=== PATIENT | male | born 1950 | race Caucasian/White ===

== ENCOUNTER 2019-02-28 12:56 | Observation (INO) | payer MEDICARE ==
[2019-02-28] MEDS ORDERED: BABY ASPIRIN 81 MG CHEW PO ONE (13:00)
[2019-02-28 13:27] LABS: BASOPHIL % 0.2 % (0.0-0.4); Basophil (Absolute #) 0.02 (0-0.4); Eosinophil % 1.3 % (0.00-5.0); Eosinophil (Absolute #) 0.13 (0-0.5); Granulocyte Absolute (ANC) 7.93 (1.4-6.9); Granulocytes % 78.1 % (36.0-66.0); Hematocrit 44.9 % (42-50); Hemoglobin 15.3 gm/dl (12.5-18.0); Lymphocyte (Absolute #) 1.61 (1.0-4.6); Lymphocytes % 15.9 % (24.0-44.0); Mean Cell Volume 89.4 fl (78-100); Mean Corpuscular Hemoglobin 30.5 pg (26-32); Mean Corpuscular Hgb Concent. 34.1 g/dl (32-36); Mean Platelet Volume 10.6 fl (6-9.5); Monocyte (Absolute #) 0.46 (0.0-1.3); Monocytes % 4.5 % (0.0-12.0); Platelet Count 269 K/mm3 (150-450); Red Blood Count 5.02 M/mm3 (4.1-5.6); Red Cell Distribution Width 13.6 % (11.5-14.0); White Blood Count 10.2 K/mm3 (4.0-10.5)
--- NOTE | 2019-02-28 13:33 | ERPHSYRPT ---
- History of Present Illness Time Seen by Provider: 02/28/19 13:10 Historian: patient Exam Limitations: clinical condition Physician History: PATIENT WITH A HISTORY OF ATRIAL FIBRILLATION, COAGULATED WITH XARELTO 10MG TWICE DAILY, TYPE 2 DIABETES, AND HPERTENSION, COMPLAINS OF ACUTE ONSET OF SHARP CHEST PAINS ASSOCIATED WITH PALPITATIONS. EMS ADMINISTERED CARDIZEM 20 INTRAVENOUS FOR RAPID ATRIL FIBILLATION RVR RATE OF 180. PATIENT DENIES CHEST PAINS UPON ARRIVAL. ADMITS TO TAKING HIS MEDICATIONS EVERY OTHER DAY. Timing/Duration: today, yesterday Activities at Onset: none Location: substernal Chest Pain Radiation: no radiation Severity of Pain-Max: moderate Severity of Pain-Current: none Associated Symptoms: palpitations Prior Chest Pain/Cardiac Workup: angina Nitro Today/Relief: no nitro taken today Aspirin Treatment Today: 81 mg x 4, provided by EMS Allergies/Adverse Reactions: No Known Drug Allergies Allergy (Verified 02/28/19 13:37) Home Medications: Aspirin EC 81 mg [Ecotrin 81 mg] 81 mg PO DAILY 08/02/13 [History] Clonazepam 0.5 mg [Klonopin 0.5 MG] 0.5 mg PO BID 08/02/13 [History] Hydrocodone/Acetaminophen [Hydrocodone-Acetamin 5-325 mg] 1 - 2 each PO Q4H PRN PRN 08/02/13 [History] Bacillus Coagulans [Probiotic] 1 each PO DAILY 02/28/19 [History] Carvedilol 12.5 mg [Coreg 12.5 mg] 12.5 mg PO BID 02/28/19 [History] Clonazepam 0.5 mg [Klonopin 0.5 MG] 0.5 mg PO DAILY 02/28/19 [History] Clonidine HCl 0.1 mg [Catapres 0.1 MG] 0.1 mg PO DAILY 02/28/19 [History] Diltiazem HCl 240 mg [Cardizem CD 240 MG] 240 mg PO DAILY 02/28/19 [ History] Glimepiride 2 mg [Amaryl 2 MG] 2 mg PO DAILY 02/28/19 [History] Lisinopril [Zestril] 40 mg PO DAILY 02/28/19 [History] Metformin HCl 500 mg [Glucophage 500 MG] 1,000 mg PO BID 02/28/19 [History ] Rivaroxaban 10 mg Tablet [Xarelto 10 mg Tablet] 10 mg PO BID 02/28/19 [ History] Vitamin E 400 unit PO DAILY 02/28/19 [History] Warfarin Sodium 1 mg [Coumadin 1 MG] 1 mg PO DAILY 02/28/19 [History] Hx Tetanus, Diphtheria Vaccination/Date Given: Yes Hx Influenza Vaccination/Date Given: No Hx Pneumococcal Vaccination/Date Given: No - Review of Systems Constitutional: No Fever, No Chills Eyes: No Symptoms Ears, Nose, & Throat: No Symptoms Respiratory: No Symptoms, No Cough, No Dyspnea Cardiac: Chest Pain, Palpitations, No Edema, No Syncope Abdominal/Gastrointestinal: No Symptoms, No Abdominal Pain, No Nausea, No Vomiting, No Diarrhea Genitourinary Symptoms: No Symptoms, No Dysuria Musculoskeletal: No Symptoms, No Back Pain, No Neck Pain Skin: No Symptoms, No Rash Neurological: No Dizziness, No Focal Weakness, No Sensory Changes Psychological: No Symptoms Endocrine: No Symptoms All Other Systems: Reviewed and Negative - Past Medical History Pertinent Past Medical History: Yes Neurological History: No Pertinent History ENT History: No Pertinent History Cardiac History: Arrhythmia, Hypertension Respiratory History: No Pertinent History Endocrine Medical History: Diabetes Type II Musculoskeletal History: No Pertinent History GI Medical History: No Pertinent History History: No Pertinent History Psycho-Social History: Anxiety, Depression Male Reproductive Disorders: No Pertinent History Other Medical History: MELANOMA - Past Surgical History Past Surgical History: Yes Neuro Surgical History: No Pertinent History Cardiac: No Pertinent History Respiratory: No Pertinent History Gastrointestinal: No Pertinent History Genitourinary: No Pertinent History Musculoskeletal: No Pertinent History Male Surgical History: No Pertinent History Other Surgical History: MOLE REMOVED FROM ARM - Social History Smoking Status: Former smoker Exposure to second hand smoke: No Drug Use: marijuana Patient Lives Alone: No Significant Family History: hypertension - Nursing Vital Signs Nursing Vital Signs: Initial Vital Signs Temperature 97.2 F 02/28/19 12:57 Pulse Rate 102 H 02/28/19 12:57 Respiratory Rate 16 02/28/19 12:57 Blood Pressure 176/99 02/28/19 12:57 O2 Sat by Pulse Oximetry 99 06/30/19 12:57 Pain Scale Pain Intensity 0 - Physical Exam General Appearance: no apparent distress, alert Eye Exam: PERRL/EOMI, eyes nml inspection Ears, Nose, Throat Exam: normal ENT inspection, moist mucous membranes Neck Exam: normal inspection, non-tender, supple, full range of motion Respiratory Exam: normal breath sounds, lungs clear, No respiratory distress Cardiovascular Exam: normal heart sounds, tachycardia, irregular Gastrointestinal/Abdomen Exam: soft, normal bowel sounds (NONTENDER), No tenderness, No mass Back Exam: normal inspection, No CVA tenderness, No vertebral tenderness Extremity Exam: normal inspection, normal range of motion Neurologic Exam: alert, oriented x 3, cooperative, normal mood/affect, sensation nml, No motor deficits Skin Exam: normal color, warm, dry SpO2: 99 - Course EKG Interpreted by Me: RATE, A-fib, NORMAL AXIS - Radiology Exams Chest X-ray Interpretation: Interpreted by me, Negative, No Infiltrates Ordered Tests: Active Orders 24 hr Category Date Time Status Chemical Maker STAT Care 02/28/19 13:01 Active EKG-ER Only STAT Care 02/28/19 13:00 Active Oxygen-ED Only Nasal Cannula 2 lpm Care 02/28/19 13:00 Active CHEST 1 VIEW (PORTABLE) Stat Exams 02/28/19 13:18 Taken CBC W DIFF Stat Lab 02/28/19 13:24 Completed CMP Stat Lab 02/28/19 13:24 Completed MAGNESIUM Routine Lab 02/28/19 13:24 Completed NT PRO BNP Stat Lab 02/28/19 13:24 Completed PROTIME WITH INR Stat Lab 02/28/19 13:24 Completed TROPONIN Q3H Lab 02/28/19 13:24 Completed TROPONIN Q3H Lab 02/28/19 16:00 Ordered TROPONIN Q3H Lab 02/28/19 19:00 Ordered TROPONIN Q3H Lab 02/28/19 22:00 Ordered TROPONIN Q3H Lab 03/01/19 01:00 Ordered Medication Summary Generic Name Dose Route Start Last Admin Trade Name Freq PRN Reason Stop Dose Admin Sodium Chloride 1,000 mls @ 100 mls/hr 02/28/19 13:00 02/28/19 14:10 Sodium Chloride 0.9% 1000 Ml IV 03/30/19 12:59 100 mls/hr .Q10H RUBY Administration Diltiazem HCl 100 mls @ 10 mls/hr 02/28/19 13:02 02/28/19 14:03 Cardizem Drip 100 Mg/100 Ml D5w IV 03/30/19 13:01 10 mg/hr .Q10H PRN 10 mls/hr HEART RATE/ A-FIB Administration Protocol 10 MG/HR Discontinued Medications Generic Name Dose Route Start Last Admin Trade Name Freq PRN Reason Stop Dose Admin Aspirin 324 mg 02/28/19 13:00 02/28/19 13:53 Baby Aspirin 81 Mg Chew PO 02/28/19 13:01 Not Given STAT ONE Lab/Rad Data: Laboratory Result Diagrams 02/28/19 13:24 02/28/19 13:24 Laboratory Results 02/28/19 02/28/19 02/28/19 Range/Units 13:24 13:24 13:24 WBC 10.2 (4.0-10.5) K/mm3 RBC 5.02 (4.1-5.6) M/mm3 Hgb 15.3 (12.5-18.0) gm/dl Hct 44.9 (42-50) % MCV 89.4 (78-100) fl MCH 30.5 (26-32) pg MCHC 34.1 (32-36) g/dl RDW 13.6 (11.5-14.0) % Plt Count 269 (150-450) K/mm3 MPV 10.6 H (6-9.5) fl Gran % 78.1 H (36.0-66.0) % Eos # (Auto) 0.13 (0-0.5) Absolute Lymphs (auto) 1.61 (1.0-4.6) Absolute Monos (auto) 0.46 (0.0-1.3) Lymphocytes % 15.9 L (24.0-44.0) % Monocytes % 4.5 (0.0-12.0) % Eosinophils % 1.3 (0.00-5.0) % Basophils % 0.2 (0.0-0.4) % Absolute Granulocytes 7.93 H (1.4-6.9) Basophils # 0.02 (0-0.4) PT 12.2 (8.83-12.87) SECONDS INR 1.08 (0.8-3.0) Sodium 142 (137-145) mmol/L Potassium 3.6 (3.5-5.1) mmol/L Chloride 108 H (98-107) mmol/L Carbon Dioxide 19 L (22-30) mmol/L Anion Gap 18.5 H (5-15) MEQ/L BUN 15 (9-20) mg/dL Creatinine 1.20 (0.66-1.25) mg/dL Estimated GFR > 60.0 ML/MIN Glucose 197 H (74-106) mg/dL Calcium 10.2 (8.4-10.2) mg/dL Magnesium (1.6-2.3) mg/dL Total Bilirubin 1.20 (0.2-1.3) mg/dL AST 18 (17-59) U/L ALT 17 (0-50) U/L Alkaline Phosphatase 76 (38-126) U/L Troponin I (0.000-0.034) ng/mL NT-Pro-B Natriuret Pep 881 (0-900) pg/mL Serum Total Protein 8.3 H (6.3-8.2) g/dL Albumin 4.8 (3.5-5.0) g/dL 02/28/19 Range/Units 13:24 WBC (4.0-10.5) K/mm3 RBC (4.1-5.6) M/mm3 Hgb (12.5-18.0) gm/dl Hct (42-50) % MCV (78-100) fl MCH (26-32) pg MCHC (32-36) g/dl RDW (11.5-14.0) % Plt Count (150-450) K/mm3 MPV (6-9.5) fl Gran % (36.0-66.0) % Eos # (Auto) (0-0.5) Absolute Lymphs (auto) (1.0-4.6) Absolute Monos (auto) (0.0-1.3) Lymphocytes % (24.0-44.0) % Monocytes % (0.0-12.0) % Eosinophils % (0.00-5.0) % Basophils % (0.0-0.4) % Absolute Granulocytes (1.4-6.9) Basophils # (0-0.4) PT (8.83-12.87) SECONDS INR (0.8-3.0) Sodium (137-145) mmol/L Potassium (3.5-5.1) mmol/L Chloride (98-107) mmol/L Carbon Dioxide (22-30) mmol/L Anion Gap (5-15) MEQ/L BUN (9-20) mg/dL Creatinine (0.66-1.25) mg/dL Estimated GFR ML/MIN Glucose (74-106) mg/dL Calcium (8.4-10.2) mg/dL Magnesium 1.9 (1.6-2.3) mg/dL Total Bilirubin (0.2-1.3) mg/dL AST (17-59) U/L ALT (0-50) U/L Alkaline Phosphatase (38-126) U/L Troponin I < 0.012 (0.000-0.034) ng/mL NT-Pro-B Natriuret Pep (0-900) pg/mL Serum Total Protein (6.3-8.2) g/dL Albumin (3.5-5.0) g/dL - Progress Progress: improved Progress Note: 02/28/19 14:21 ADMINISTERED IV CARDIZEM INFUSION 10MG/HR, RATE CONTROLLED AT [address] Morales (DISCUSSED WITH DR MORALES AT 1430 FOR OBSERVATION) - Departure Departure Disposition: Observation Clinical Impression: ACUTE CHEST PAIN, ATRIAL FIBRILLATION RVR Condition: Stable Critical Care Time: No Referrals: BASHIR MORALES [Primary Care Provider] -
[2019-02-28 13:34] LABS: INR 1.08 (0.8-3.0); PROTIME 12.2 SECONDS (8.83-12.87)
[2019-02-28 13:47] LABS: ALBUMIN 4.8 g/dL (3.5-5.0); ALKALINE PHOSPHATASE 76 U/L (38-126); ANION GAP 18.5 MEQ/L (5-15); BLOOD UREA NITROGEN 15 mg/dL (9-20); CHLORIDE 108 mmol/L (98-107); Calcium 10.2 mg/dL (8.4-10.2); Carbon Dioxide 19 mmol/L (22-30); Glucose 197 mg/dL (74-106); NT PRO BNP 881 pg/mL (0-900); Potassium 3.6 mmol/L (3.5-5.1); SGOT/AST 18 U/L (17-59); SGPT/ALT 17 U/L (0-50); SODIUM 142 mmol/L (137-145); Total Protein 8.3 g/dL (6.3-8.2)
[2019-02-28 13:50] LABS: MAGNESIUM 1.9 mg/dL (1.6-2.3)
[2019-02-28 13:56] LABS: TROPONIN < 0.012 ng/mL (0.000-0.034)
[2019-02-28] MEDS: CARDIZEM DRIP 100 MG/100 ML D5W 100 ML IV PRN (14:03)
[2019-02-28] MEDS: Sodium Chloride 0.9% 1000 ML 1,000 ML IV SCH (14:10)
[2019-02-28] MEDS ORDERED: Zofran 4 MG/2 ML VIAL IV PRN (14:59)
[2019-02-28] MEDS ORDERED: TYLENOL 325 MG PO PRN (14:59)
[2019-02-28] MEDS ORDERED: Zestril 10 MG PO STA (15:04)
[2019-02-28] MEDS ORDERED: Catapres 0.1 MG PO ONE (17:25)
[2019-02-28] MEDS ORDERED: Coumadin 3 MG PO SCH (18:00)
[2019-02-28] MEDS ORDERED: Zestril 20 MG ONE (18:01)
[2019-02-28] MEDS ORDERED: NORVASC 5 MG ONE (18:02)
[2019-02-28] MEDS: Coreg 6.25 MG PO SCH (18:07)
[2019-02-28] MEDS: NORVASC 5 MG PO SCH (18:13)
--- NOTE | 2019-02-28 19:07 | PCM.HP ---
History of Present Illness - Chief Complaint Chief Complaint: Chest Pain History of Present Illness: is a 69 year old male pt of mine from [facility] with hx noncompliance, hx malignant melanoma, chronic afib, DM, HTN, and anxiety who was brought in by EMS in [facility] with RVR. He was found to have an intial HR of 140 and was given 20mg cardizem IV by EMS and is now on a 10mg drip with HR in the 90s. Pt said "for some time" he's had palpitations, worsening. Since the weather warmed he has felt hot, like he can't breathe at night In his ROS, very concerning was his discussion that he has been having "overwhelming thoughts" of suicide which are intermittent - when they are over, he can't believe he had those thoughts. Has had thoughts of using a rope or a gun to harm himself. Pt has recently not been taking his meds regularly. Re: Xarelto - he stopped it because it made him bleed worse than warfarin. He then found the demands of INR checking to be too onerous so has not been taking warfarin or getting his INR checked. Current INR 1.08. Re: Antihypertensives/antiarrhythmics - he found that his HR was getting too low , was feeling very tired, so initially he was taking 1/2 his pills, then he moved to just taking them every other day if his #s "were bad." Found the clonidine to dry his mouth too much so was just taking it prn if his bP was elevated. He apparently lives in a poor situation, described as "slum lord house," with little insulation and a window unit. - Review of Systems Constitutional: Weakness Respiratory: Short Of Breath Cardiac: Palpitations Musculoskeletal: Other (arm pain at melanoma site intermittently) Psychological: Anxiety, Depression, Suicidal Ideations, Emotional Lability Endocrine: Other (heat intolerance) All Other Systems: Reviewed and Negative Medications & Allergies Home Medications: Home Medication List Aspirin EC 81 mg [Ecotrin 81 mg] 81 mg PO DAILY 08/02/13 [History Confirmed 02/28/19] Hydrocodone/Acetaminophen [Hydrocodone-Acetamin 5-325 mg] 1 - 2 each PO Q4H PRN PRN 08/02/13 [History Confirmed 02/28/19] Amlodipine Besylate 10 mg PO DAILY 02/28/19 [History Confirmed 02/28/19] Bacillus Coagulans [Probiotic] 1 each PO DAILY 02/28/19 [History Confirmed 02/28] Carvedilol 12.5 mg [Coreg 12.5 mg] 12.5 mg PO BID 02/28/19 [History Confirmed 02/28/19] Clonazepam 0.5 mg [Klonopin 0.5 MG] 0.5 mg PO BID PRN 02/28/19 [History Confirmed 02/28/19] Clonidine HCl 0.1 mg [Catapres 0.1 MG] 0.1 mg PO DAILY 02/28/19 [History Confirmed 02/28/19] Diltiazem HCl 240 mg [Cardizem CD 240 MG] 240 mg PO DAILY 02/28/19 [ History Confirmed 02/28/19] Glimepiride 2 mg [Amaryl 2 MG] 2 mg PO DAILY 02/28/19 [History Confirmed 02/28/19] Lisinopril [Zestril] 40 mg PO DAILY 02/28/19 [History Confirmed 02/28/19] Metformin HCl 500 mg [Glucophage 500 MG] 1,000 mg PO BID 02/28/19 [ History Confirmed 02/28/19] Vitamin E 400 unit PO DAILY 02/28/19 [History Confirmed 02/28/19] Warfarin Sodium [Jantoven] 6 mg PO DAILY 02/28/19 [History Confirmed 02/28/19] Allergies/Adverse Reactions: Allergies Allergy/AdvReac Type Severity Reaction Status Date / Time No Known Drug Allergies Allergy Verified 02/28/19 13:37 - Past Medical History Past Medical History: Yes Neurological History: No Pertinent History ENT History: No Pertinent History Cardiac History: Arrhythmia, Hypertension Respiratory History: No Pertinent History Endocrine Medical History: Diabetes Type II Musculoskelatal History: No Pertinent History GI Medical History: No Pertinent History History: No Pertinent History Pyscho-Social History: Anxiety, Depression Male Reproductive Disorders: No Pertinent History Comment: MELANOMA right arm - Past Surgical History Past Surgical History: Yes Neuro Surgical History: No Pertinent History Cardiac History: No Pertinent History Respiratory Surgery: No Pertinent History GI Surgical History: No Pertinent History Genitourinary Surgical Hx: No Pertinent History Musculskeletal Surgical Hx: No Pertinent History Male Surgical History: No Pertinent History Other Surgical History: MOLE REMOVED FROM ARM - Social History Smoking Status: Former smoker Exposure to second hand smoke: Yes Alcohol: None Drug Use: marijuana Significant Family History: hypertension - Physical Exam Vital Signs: Vital Signs - 24 hr Temp Pulse Pulse Resp BP BP Pulse Ox 02/28/19 18:00 97.8 F 79 18 157/86 98 02/28/19 16:48 97.8 F 79 18 157/86 98 02/28/19 16:21 97.8 F 79 18 157/86 99 02/28/19 16:01 97.8 F 79 18 157/86 98 02/28/19 15:03 84 18 167/92 02/28/19 14:59 67 02/28/19 14:31 99 02/28/19 14:14 92 H 16 161/109 99 02/28/19 13:05 100 H 02/28/19 12:57 97.2 F 102 H 16 176/99 99 Oxygen-Last 24 hours O2 Percentage 2 Liters = 28% O2 Percentage 3 Liters = 32% O2 Percentage 3 Liters = 32% General Appearance: no apparent distress, alert Neurologic Exam: oriented x 3, cooperative, depressed mood/affect Eye Exam: eyes nml inspection Ears, Nose, Throat Exam: moist mucous membranes Neck Exam: normal inspection, non-tender, No lymphadenopathy Respiratory Exam: normal breath sounds, lungs clear, No crackles/rales, No rhonchi, No wheezing Cardiovascular Exam: regular rate/rhythm, normal heart sounds, No murmur Gastrointestinal/Abdomen Exam: soft, normal bowel sounds, No tenderness, No distention, No mass, No guarding, No rebound Back Exam: normal inspection, No rash Extremity Exam: normal inspection, No pedal edema, No swelling Skin Exam: normal color, warm, dry, No rash Results - Labs Lab/Micro Results: Lab Results-Last 24 Hours 02/28/19 02/28/19 02/28/19 Range/Units 13:24 13:24 13:24 WBC 10.2 (4.0-10.5) K/mm3 RBC 5.02 (4.1-5.6) M/mm3 Hgb 15.3 (12.5-18.0) gm/dl Hct 44.9 (42-50) % MCV 89.4 (78-100) fl MCH 30.5 (26-32) pg MCHC 34.1 (32-36) g/dl RDW 13.6 (11.5-14.0) % Plt Count 269 (150-450) K/mm3 MPV 10.6 H (6-9.5) fl Gran % 78.1 H (36.0-66.0) % Eos # (Auto) 0.13 (0-0.5) Absolute Lymphs (auto) 1.61 (1.0-4.6) Absolute Monos (auto) 0.46 (0.0-1.3) Lymphocytes % 15.9 L (24.0-44.0) % Monocytes % 4.5 (0.0-12.0) % Eosinophils % 1.3 (0.00-5.0) % Basophils % 0.2 (0.0-0.4) % Absolute Granulocytes 7.93 H (1.4-6.9) Basophils # 0.02 (0-0.4) PT (8.83-12.87) SECONDS INR (0.8-3.0) Sodium 142 (137-145) mmol/L Potassium 3.6 (3.5-5.1) mmol/L Chloride 108 H (98-107) mmol/L Carbon Dioxide 19 L (22-30) mmol/L Anion Gap 18.5 H (5-15) MEQ/L BUN 15 (9-20) mg/dL Creatinine 1.20 (0.66-1.25) mg/dL Estimated GFR > 60.0 ML/MIN Glucose 197 H (74-106) mg/dL Hemoglobin A1c (4.5-6.0) % Calcium 10.2 (8.4-10.2) mg/dL Magnesium 1.9 (1.6-2.3) mg/dL Total Bilirubin 1.20 (0.2-1.3) mg/dL AST 18 (17-59) U/L ALT 17 (0-50) U/L Alkaline Phosphatase 76 (38-126) U/L Troponin I < 0.012 (0.000-0.034) ng/mL NT-Pro-B Natriuret Pep 881 (0-900) pg/mL Serum Total Protein 8.3 H (6.3-8.2) g/dL Albumin 4.8 (3.5-5.0) g/dL 02/28/19 02/28/19 02/28/19 Range/Units 13:24 13:25 15:52 WBC (4.0-10.5) K/mm3 RBC (4.1-5.6) M/mm3 Hgb (12.5-18.0) gm/dl Hct (42-50) % MCV (78-100) fl MCH (26-32) pg MCHC (32-36) g/dl RDW (11.5-14.0) % Plt Count (150-450) K/mm3 MPV (6-9.5) fl Gran % (36.0-66.0) % Eos # (Auto) (0-0.5) Absolute Lymphs (auto) (1.0-4.6) Absolute Monos (auto) (0.0-1.3) Lymphocytes % (24.0-44.0) % Monocytes % (0.0-12.0) % Eosinophils % (0.00-5.0) % Basophils % (0.0-0.4) % Absolute Granulocytes (1.4-6.9) Basophils # (0-0.4) PT 12.2 (8.83-12.87) SECONDS INR 1.08 (0.8-3.0) Sodium (137-145) mmol/L Potassium (3.5-5.1) mmol/L Chloride (98-107) mmol/L Carbon Dioxide (22-30) mmol/L Anion Gap (5-15) MEQ/L BUN (9-20) mg/dL Creatinine (0.66-1.25) mg/dL Estimated GFR ML/MIN Glucose (74-106) mg/dL Hemoglobin A1c 7.35 H (4.5-6.0) % Calcium (8.4-10.2) mg/dL Magnesium (1.6-2.3) mg/dL Total Bilirubin (0.2-1.3) mg/dL AST (17-59) U/L ALT (0-50) U/L Alkaline Phosphatase (38-126) U/L Troponin I < 0.012 (0.000-0.034) ng/mL NT-Pro-B Natriuret Pep (0-900) pg/mL Serum Total Protein (6.3-8.2) g/dL Albumin (3.5-5.0) g/dL - Radiology Impressions Radiology Exams & Impressions: Radiology Procedures Category Date Time Status CHEST 1 VIEW (PORTABLE) Stat Exams 02/28/19 13:18 Taken - Other Procedures and Tests Respiratory Therapy 02/28/19 14:59 Oxygen Nasal Cannula 2 lpm 02/28/19 21:00 EKG ONCE 03/01/19 05:00 EKG ONCE 03/02/19 05:00 EKG ONCE 03/03/19 05:00 EKG ONCE Assessment/Plan (1) Atrial fibrillation with RVR Current Visit: Yes Status: Acute Assessment & Plan: ON cardizem drip at 10/hr - would consider changing to po cardizem in the morning - maybe a little lower than typical home dose because it sounds like that made his HR too low. Code(s): I48.91 - UNSPECIFIED ATRIAL FIBRILLATION (2) Suicidal ideation Current Visit: Yes Status: Acute Assessment & Plan: Consulting [facility] in the morning - I did not mention this to pt yet because I did not want to distress him or make him leave AMA. I believe however that he may be very agreeable because he found these thoughts distressing. Code(s): R45.851 - SUICIDAL IDEATIONS (3) Depression Current Visit: Yes Status: Chronic Qualifiers: Depression Type: major depressive disorder Major depression recurrence: recurrent Active/Remission status: currently active Major depression episode severity: severe Psychotic features: without psychotic features Qualified Code(s): F33.2 - Major depressive disorder, recurrent severe without psychotic features Code(s): F32.9 - MAJOR DEPRESSIVE DISORDER, SINGLE EPISODE, UNSPECIFIED (4) Diabetes mellitus Current Visit: Yes Status: Chronic Qualifiers: Diabetes mellitus type: type 2 Diabetes mellitus mcfp insulin use: without gill box fixer use Diabetes mellitus complication status: without complication Qualified Code(s): E11.9 - Type 2 diabetes mellitus without complications Code(s): E11.9 - TYPE 2 DIABETES MELLITUS WITHOUT COMPLICATIONS (5) HTN (hypertension) Current Visit: Yes Status: Chronic Qualifiers: Hypertension type: essential hypertension Qualified Code(s): I10 - Essential (primary) hypertension Code(s): I10 - ESSENTIAL (PRIMARY) HYPERTENSION (6) Hx of melanoma of skin Current Visit: Yes Status: Chronic Assessment & Plan: report pending on CXR. He does not get regular checks like he should. I removed the initial lesion approx 6 years ago and he saw dermatology in [facility] for the full resection and did not have any mets at that time. Code(s): Z85.820 - PERSONAL HISTORY OF MALIGNANT MELANOMA OF SKIN
[2019-02-28] MEDS: ENOXAPARIN SODIUM SQ SCH (20:16)
--- NOTE | 2019-02-28 21:10 | XRAY ---
Indication: Chest pain. Comparison: February 21, 2014. Portable chest remains clear. Heart and mediastinal structures within normal limits. Bony thorax intact with mild degenerative changes. Impression: Nonacute chest.
[2019-02-28] MEDS ORDERED: XARELTO 10 MG TABLET PO SCH (22:00)
[2019-03-01] MEDS: Sodium Chloride 0.9% 1000 ML 1,000 ML IV SCH ×2 (00:28→10:48)
[2019-03-01] MEDS ORDERED: CARDIZEM DRIP 100 MG/100 ML D5W 100 ML IV ONE (01:43)
[2019-03-01] MEDS: CARDIZEM DRIP 100 MG/100 ML D5W 100 ML IV PRN (01:57)
[2019-03-01 06:36] LABS: INR 1.23 (0.8-3.0); PROTIME 13.9 SECONDS (8.83-12.87)
[2019-03-01] MEDS ORDERED: NORCO 5/325 MG PO PRN (07:22)
[2019-03-01] MEDS ORDERED: Glucophage 500 MG PO SCH (08:00)
[2019-03-01] MEDS: Coreg 6.25 MG PO SCH (09:36)
[2019-03-01] MEDS: ENOXAPARIN SODIUM SQ SCH (09:37)
[2019-03-01] MEDS: NORVASC 5 MG PO SCH (09:37)
[2019-03-01] MEDS ORDERED: Zestril 20 MG PO SCH (10:00)
[2019-03-01] MEDS ORDERED: ECOTRIN 81 MG PO SCH (10:00)
[2019-03-01] MEDS ORDERED: Catapres 0.1 MG PO SCH (10:00)
[2019-03-01] MEDS ORDERED: Cardizem CD 240 MG PO SCH (10:00)
[2019-03-01] MEDS ORDERED: NON-FORMULARY ITEM (Lisinopril [Zestril] 40 MG) PO SCH (10:00)
[2019-03-01] MEDS ORDERED: Amaryl 2 MG PO SCH (10:00)
[2019-03-01] MEDS ORDERED: Cardizem CD 180 MG PO SCH (13:45)
[2019-03-01] MEDS ORDERED: Cardizem CD 120 MG PO SCH (14:00)
[2019-03-01] MEDS ORDERED: Coreg 6.25 MG PO ONE (16:50)
[2019-03-01 16:56] VITALS: PULSE 101; O2SAT 98
[2019-03-01 17:12] VITALS: BP 143/81
--- NOTE | 2019-03-01 17:33 | PCM.DS ---
Discharge Summary Date of Admission: 02/28/19 15:53 Admitting Physician: BASHIR MORALES Consults: Consults on Case 02/28/19 19:11 Consult Tele-Health [Tele-Health Consult] ROUTINE Primary Care Provider: BASHIR MORALES Allergies Allergies No Known Drug Allergies Allergy (Verified 02/28/19 13:37) Hospital Summary - Vitals & Intake/Output Vital Signs: Vital Signs Temperature 97.7 F 03/01/19 16:00 Pulse Rate 101 H 03/01/19 16:00 Respiratory Rate 18 03/01/19 16:00 Blood Pressure 143/81 03/01/19 17:10 O2 Sat by Pulse Oximetry 98 03/01/19 16:00 Oxygen-Last Documented O2 Percentage 2 Liters = 28% Intake & Output: Intake & Output 02/27/19 02/28/19 03/01/19 03/02/19 11:59 11:59 11:59 11:59 Intake Total 1903 Output Total 1850 Balance 53 Weight 77.3 kg - Lab Result Diagrams: 02/28/19 13:24 02/28/19 13:24 Lab Results-Last 24 Hrs: Accuchecks Date 03/01/19 Date 03/01/19 Date 02/28/19 Time 11:30 Time 07:30 Time 21:00 Accucheck Value: 183 Accucheck Value: 155 Accucheck Value: 160 Lab Results-Last 24 Hours 02/28/19 02/28/19 03/01/19 Range/Units 19:10 22:28 01:05 PT (8.83-12.87) SECONDS INR (0.8-3.0) Troponin I < 0.012 < 0.012 < 0.012 (0.000-0.034) ng/mL 03/01/19 Range/Units 05:17 PT 13.9 H (8.83-12.87) SECONDS INR 1.23 (0.8-3.0) Troponin I (0.000-0.034) ng/mL Micro Results-Entire Visit: Accuchecks Date 03/01/19 Date 03/01/19 Date 02/28/19 Time 11:30 Time 07:30 Time 21:00 Accucheck Value: 183 Accucheck Value: 155 Accucheck Value: 160 - Radiology Exams Ordered Rad Exams-Entire Visit: Radiology Procedures Category Date Time Status CHEST 1 VIEW (PORTABLE) Stat Exams 02/28/19 13:18 Completed - Procedures and Test Procedures and Tests throughout Hospitalization: Therapy Orders & Screens 02/28/19 14:59 Oxygen Nasal Cannula 2 lpm Comment: 02/28/19 21:00 EKG ONCE Comment: Diagnosis: Chest Pain 03/01/19 05:00 EKG ONCE Comment: Diagnosis: Chest Pain 03/02/19 05:00 EKG ONCE Comment: Diagnosis: Chest Pain 03/03/19 05:00 EKG ONCE Comment: Diagnosis: Chest Pain Final Diagnosis/Problem List - Final Discharge Diagnosis/Problem (1) Atrial fibrillation with RVR Current Visit: Yes Status: Resolved Assessment & Plan: on diltiazem,transitioned off Drip without difficulty.Rate now in the 80's. Code(s): I48.91 - UNSPECIFIED ATRIAL FIBRILLATION (2) HTN (hypertension) Current Visit: Yes Status: Chronic Assessment & Plan: patient will monitor at home and record and bring readings to follow visit and will call if problems with B/P Code(s): I10 - ESSENTIAL (PRIMARY) HYPERTENSION (3) Depression Current Visit: Yes Status: Chronic Assessment & Plan: Patient had the benefit of evaluation with today who states patient is stable for discharge home and was given a Saftey Plan and they are confident that he will follow it . Code(s): F32.9 - MAJOR DEPRESSIVE DISORDER, SINGLE EPISODE, UNSPECIFIED (4) Diabetes mellitus Current Visit: Yes Status: Chronic Assessment & Plan: A1C is 7.35 this hospital stay. Metformin reduced to 500mg q PM ( patient was taking it qod at home and had been on 1000mg daily.Amaryl 2 mg daily as at home. Code(s): E11.9 - TYPE 2 DIABETES MELLITUS WITHOUT COMPLICATIONS (5) Suicidal ideation Current Visit: Yes Status: Resolved Assessment & Plan: no further suicidal ideation.see eval and recommendations.Patient states he had a good visit with them today. Code(s): R45.851 - SUICIDAL IDEATIONS (6) Atrial fibrillation Current Visit: Yes Status: Chronic Assessment & Plan: continue Cardiazem 240mg,stop Amlodipine.Continue Coumadin 6 mg daily (this is his usual dose)Xeralto was discontinued this hospitalization. Code(s): I48.91 - UNSPECIFIED ATRIAL FIBRILLATION (7) Anticoagulant long-term use Current Visit: Yes Status: Chronic Assessment & Plan: Patient prefers "Coumadin as I used to take it and test with Dr Morales at her office". He will not take Xeralto because he says his gums bleed and face bleeds easily when he shaves . Code(s): Z79.01 - NURSING HOME (CURRENT) USE OF ANTICOAGULANTS - Discharge Disposition: Home, Self-Care Condition: Stable Prescriptions: No Action Aspirin EC 81 mg [Ecotrin 81 mg] 81 mg PO DAILY Hydrocodone/Acetaminophen [Hydrocodone-Acetamin 5-325 mg] 1 - 2 each PO Q4H PRN PRN PRN Reason: Pain Clonidine HCl 0.1 mg [Catapres 0.1 MG] 0.1 mg PO DAILY Carvedilol 12.5 mg [Coreg 12.5 mg] 12.5 mg PO BID Clonazepam 0.5 mg [Klonopin 0.5 MG] 0.5 mg PO BID PRN PRN Reason: Anxiety Lisinopril [Zestril] 40 mg PO DAILY Metformin HCl 500 mg [Glucophage 500 MG] 1,000 mg PO BID Glimepiride 2 mg [Amaryl 2 MG] 2 mg PO DAILY Vitamin E 400 unit PO DAILY Bacillus Coagulans [Probiotic] 1 each PO DAILY Diltiazem HCl 240 mg [Cardizem CD 240 MG] 240 mg PO DAILY Warfarin Sodium [Jantoven] 6 mg PO DAILY Amlodipine Besylate 10 mg PO DAILY Follow up with: BASHIR MORALES [Primary Care Provider] - 03/09/19 11:15 am
[2019-03-02] MEDS ORDERED: Amaryl 2 MG PO SCH (08:00)
== END 2019-03-01 18:08 | disposition home or self-care (01) ==
LOC: ED 12:56 → ICU 15:53
PROVIDERS: ADMIT Family Medicine; ATTEND Family Medicine
DX: I48.91 Unspecified atrial fibrillation (principal); R45.851 Suicidal ideations; F32.9 Major depressive disorder, single episode, unspecified; E11.9 Type 2 diabetes mellitus without complications; Z79.4 Long term (current) use of insulin; I10 Essential (primary) hypertension; Z85.820 Personal history of malignant melanoma of skin; F41.9 Anxiety disorder, unspecified; R45.86 Emotional lability; Z79.01 Long term (current) use of anticoagulants; Z79.899 Other long term (current) drug therapy; R07.9 Chest pain, unspecified
CPT/HCPCS: 36415; 71045; 80053; 82962; 83036; 83735; 83880; 84484; 85025; 85610; 90791; 93005; 93041; 93268; 96360; 96361; 96365; 96374; 99285; G0378; Q3014; 96375; J1650; A9270-GY